=== PATIENT | male | born 1960 | race African-American/Black ===

== ENCOUNTER 2021-06-13 04:10 | Emergency (ER) | payer MEDICAID ==
[~2021-06-13] VITALS: Ht 167.6 cm; Wt 68.0 kg
[2021-06-13] MEDS ORDERED: TOPUD PO (06:46)
[2021-06-13 06:52] VITALS: BP 123/79
== END 2021-06-13 06:56 | disposition home or self-care (01) ==
LOC: ER 05:52
DX: S20.214A Contusion of middle front wall of thorax, initial encounter (principal); M79.662 Pain in left lower leg; V43.52XA Car driver injured in collision with other type car in traffic accident, initial encounter; Y93.89 Activity, other specified; Y92.488 Other paved roadways as the place of occurrence of the external cause
CPT/HCPCS: 71045; 73590; 93005; 99284